=== PATIENT | male | born 1995 | race African-American/Black ===

== ENCOUNTER 2016-12-02 12:31 | Emergency (ER) | payer SELFPAY ==
--- NOTE | 2016-12-02 12:55 | EDM.PDOC ---
ED HPI GENERAL MEDICAL PROBLEM - General Chief Complaint: ENT Problem Stated Complaint: PAIN/SWELLING THROAT Time Seen by Provider: 12/02/16 12:38 - History of Present Illness INITIAL COMMENTS - FREE TEXT/NARRATIVE: HISTORY AND PHYSICAL: History of present illness: The patient is a healthy 21-year-old male who presents with several days of swollen glands in his neck and some discomfort with swallowing. The patient denies any fever chills runny nose tear pain sore throat facial swelling or tooth pain and has had no abdominal issues. He says he was treated for strep throat a couple of months ago but only took 5 days of the antibiotics because he felt better and did not complete the course. He says that the provider warned him that he might get a throat infection again. He is concerned that might be happening. Review of systems: As per history of present illness and below otherwise all systems reviewed and negative. Past medical history: As per history of present illness and as reviewed below otherwise noncontributory. Surgical history: As per history of present illness and as reviewed below otherwise noncontributory. Social history: No reported history of drug or alcohol abuse. Family history: As per history of present illness and as reviewed below otherwise noncontributory. Physical exam: Gen.: Well-developed well-nourished male who is nontoxic and vital signs are stable. HEENT: Atraumatic, normocephalic, pupils reactive, negative for conjunctival pallor or scleral icterus, mucous membranes moist, throat clear, neck supple with bilateral anterior cervical adenopathy right slightly greater than the left mobile and mildly tender, there is no posterior lymphadenopathy and no nuchal rigidity, bilateral tonsils are mildly enlarged right slightly greater than left with some punctate exudates but uvula is midline, speech is normal without muffled or hoarse voice., nontender, trachea midline. Lungs: Clear to auscultation, breath sounds equal bilaterally, chest nontender. Heart: S1S2, regular rate and rhythm no overt murmurs Abdomen: Soft, nondistended, nontender. NABS Genitourinary: Deferred. Rectal: Deferred. Extremities: Atraumatic, negative for cords or calf pain. Neurovascular unremarkable. Neuro: Awake, alert, oriented. Cranial nerves II through XII unremarkable. Cerebellum unremarkable. Motor and sensory unremarkable throughout. Exam nonfocal. Diagnostics: [] Therapeutics: [] Impression: Recurrent tonsillitis/cervical lymphadenopathy Definitive disposition and diagnosis as appropriate pending reevaluation and review of above. - Related Data Allergies Allergy/AdvReac Type Severity Reaction Status Date / Time No Known Allergies Allergy Verified 12/02/16 12:41 Home Meds: Home Meds . [No Known Home Meds] 12/02/16 [History] Past Medical History - Past Health History Medical/Surgical History: Denies Medical/Surgical History Social & Family History - Family History Family Medical History: Noncontributory - Tobacco Use Smoking Status *Q: Current Every Day Smoker Years of Tobacco use: 1 Packs/Tins Daily: 0.5 - Recreational Drug Use Recreational Drug Use: Yes Recreational Drug Type: Reports: Marijuana/Hashish Recreational Drug Use Frequency: Daily ED ROS GENERAL - Review of Systems Review Of Systems: ROS reveals no pertinent complaints other than HPI. ED EXAM, GENERAL - Physical Exam Exam: See Below (See dictation) Course - Vital Signs Last Recorded V/S: Last Vital Signs Temp 36.6 C 12/02/16 12:41 Pulse 94 12/02/16 12:41 Resp 18 12/02/16 12:41 BP 126/67 12/02/16 12:41 Pulse Ox 98 12/02/16 12:41 Departure - Departure Time of Disposition: 12:53 Disposition: Home, Self-Care 01 Condition: Good Clinical Impression: Cervical lymphadenopathy, Tonsillitis - Discharge Information Forms: ED Department Discharge Additional Instructions: The following information is given to patients seen in the emergency department who are being discharged to home. This information is to outline your options for follow-up care. We provide all patients seen in our emergency department with a follow-up referral. The need for follow-up, as well as the timing and circumstances, are variable depending upon the specifics of your emergency department visit. If you don't have a primary care physician on staff, we will provide you with a referral. We always advise you to contact your personal physician following an emergency department visit to inform them of the circumstance of the visit and for follow-up with them and/or the need for any referrals to a consulting specialist. The emergency department will also refer you to a specialist when appropriate. This referral assures that you have the opportunity for followup care with a specialist. All of these measure are taken in an effort to provide you with optimal care, which includes your followup. Under all circumstances we always encourage you to contact your private physician who remains a resource for coordinating your care. When calling for followup care, please make the office aware that this follow-up is from your recent emergency room visit. If for any reason you are refused follow-up, please contact the emergency department at and ask to speak to the emergency department charge nurse. [facility] Primary care- Internal Medicine and Family [address] [id number] Please call and follow-up with primary care as we discussed and take all antibiotics until they're finished. Use [id number] medications for pain or fever such as Tylenol and/or ibuprofen. Push hydration and return to ER as needed and as discussed. Expect that the glands in the neck will slowly decrease in size with the antibiotics
== END 2016-12-02 13:02 | disposition home or self-care (01) ==
LOC: MW.ED 12:31
CPT/HCPCS: 99282; 99283

== ENCOUNTER 2023-04-05 15:33 | Emergency (ER) | payer OTHER ==
[2023-04-05 18:47] VITALS: BP 126/72; PULSE 78
== END 2023-04-05 18:47 | disposition home or self-care (01) ==
LOC: MW.ED 15:33
DX: S46.211A Strain of muscle, fascia and tendon of other parts of biceps, right arm, initial encounter (principal); X50.1XXA Overexertion from prolonged static or awkward postures, initial encounter
CPT/HCPCS: 73060-26-RT; 73060-RT; 93005; 99284

== ENCOUNTER 2023-04-06 13:04 | Emergency (ER) | payer OTHER ==
[2023-04-06 13:16] VITALS: BP 132/81
[2023-04-06 16:15] VITALS: PULSE 94
== END 2023-04-06 16:14 | disposition home or self-care (01) ==
LOC: MW.ED 13:04
DX: M79.601 Pain in right arm (principal); F17.210 Nicotine dependence, cigarettes, uncomplicated
CPT/HCPCS: 93971-26-RT; 93971-RT; 99283

== ENCOUNTER 2023-10-30 12:38 | Emergency (ER) | payer SELFPAY ==
[2023-10-30 12:56] LABS: BASOPHILS ABSOLUTE AUTO 0.03 K/uL (0.00-0.20); BASOPHILS PERCENT AUTO 0.4 % (0.0-1.0); EOSINOPHILS ABSOLUTE AUTO 0.12 K/uL (0.00-0.45); EOSINOPHILS PERCENT AUTO 1.4 % (0.0-6.0); HEMATOCRIT 45.5 % (42.0-52.0); HEMOGLOBIN 15.8 g/dL (14.0-18.0); IMMATURE GRAN ABSOLUTE AUTO 0.01 K/uL (0.00-0.05); IMMATURE GRAN PERCENT AUTO 0.1 % (0.0-0.4); LYMPHOCYTES ABSOLUTE AUTO 3.08 K/uL (1.00-4.80); LYMPHOCYTES PERCENT AUTO 36.3 % (24.0-44.0); MEAN CORPUSCULAR HGB CONC 34.7 g/dL (32.0-36.0); MEAN CORPUSCULAR VOLUME 86.5 fL (83.0-99.0); MONOCYTES ABSOLUTE AUTO 1.35 K/uL (0.00-0.80); MONOCYTES PERCENT AUTO 15.9 % (0.0-8.0); NEUTROPHILS ABSOLUTE AUTO 3.89 K/uL (1.80-7.70); NEUTROPHILS PERCENT AUTO 45.9 % (41.0-71.0); PLATELET COUNT,PLT 238 K/uL (150-400); RED BLOOD CELL COUNT 5.26 M/uL (4.52-5.90); WHITE BLOOD CELL COUNT,WBC 8.48 K/uL (3.9-11.3)
[2023-10-30] MEDS: Sodium Chloride 0.9% 1,000 ML IV STA (12:56)
[2023-10-30 13:28] LABS: A/G RATIO 0.9 (0.9-1.6); ALANINE AMINOTRANSFERASE,ALT 26 IU/L (14-63); ALBUMIN 3.6 g/dL (3.4-5.0); ALKALINE PHOSPHATASE 80 U/L (46-116); ASPARTATE AMNIOTRANSFERASE,AST 14 IU/L (15-37); BILIRUBIN TOTAL 0.6 mg/dL (0.2-1.0); BLOOD UREA NITROGEN,BUN 15 mg/dL (7.0-18.0); CALCIUM 8.9 mg/dL (8.5-10.1); CARBON DIOXIDE,CO2 22.3 mmol/L (21.0-32.0); CHLORIDE,CL 97 mmol/L (98-107); CREATININE 1.5 mg/dL (0.8-1.3); GLUCOSE RANDOM 190 mg/dL (74-106); LIPASE 15 U/L (16-77); POTASSIUM,K 3.1 mmol/L (3.5-5.1); PROTEIN TOTAL,TP 7.4 g/dL (6.4-8.2); SODIUM,NA 137 mmol/L (136-148)
[2023-10-30 13:29] LABS: ESTIMATED GFR 64 mL/min (>60)
[2023-10-30 13:37] LABS: MAGNESIUM 1.7 mg/dL (1.8-2.4); TSH ULTRASENSITIVE 0.71 uIU/mL (0.36-3.74)
[2023-10-30 13:54] LABS: INR 1.21 (0.86-1.11)
[2023-10-30] MEDS: Potassium Chloride 20 MEQ Tab.ER PO STA (14:13)
[2023-10-30] MEDS: Magnesium Sulfate/Water 2 GM in Premix Bag 1 BAG IV STA (14:13)
[2023-10-30 15:15] VITALS: BP 148/75; PULSE 79
== END 2023-10-30 15:14 | disposition home or self-care (01) ==
LOC: MW.ED 12:38
DX: R07.9 Chest pain, unspecified (principal); E83.42 Hypomagnesemia; Z75.8 Other problems related to medical facilities and other health care
CPT/HCPCS: 36415; 71046; 80053; 83690; 83735; 84443; 84484; 85025; 85379; 85610; 93005; 96361; 96365; 99285; A9270; J3475; J7030; 93010; 99283

== ENCOUNTER 2023-11-25 01:21 | Emergency (ER) | payer SELFPAY ==
[2023-11-25 02:29] VITALS: BP 124/87; PULSE 86
== END 2023-11-25 02:34 | disposition home or self-care (01) ==
LOC: MW.ED 01:21
DX: R00.2 Palpitations (principal)
CPT/HCPCS: 93005; 99284

== ENCOUNTER 2024-04-22 09:44 | Emergency (ER) | payer SELFPAY ==
[2024-04-22 10:08] VITALS: BP 138/87
[2024-04-22 11:35] VITALS: PULSE 79
== END 2024-04-22 11:35 | disposition home or self-care (01) ==
LOC: MW.ED 09:44
DX: J02.8 Acute pharyngitis due to other specified organisms (principal); R59.0 Localized enlarged lymph nodes; Z75.8 Other problems related to medical facilities and other health care
CPT/HCPCS: 87428-QW; 87651-QW; 99284

== ENCOUNTER 2024-09-07 21:08 | Emergency (ER) | payer SELFPAY ==
[2024-09-08 01:28] VITALS: BP 131/80; PULSE 83
== END 2024-09-08 01:27 | disposition home or self-care (01) ==
LOC: MW.ED 21:08
DX: R59.0 Localized enlarged lymph nodes (principal); L81.8 Other specified disorders of pigmentation; F17.210 Nicotine dependence, cigarettes, uncomplicated
CPT/HCPCS: 87428-QW; 87651; 99282; 99283